=== PATIENT | female | born 1965 | race Caucasian/White ===

== ENCOUNTER 2018-05-03 14:40 | Outpatient (CLI) | payer OTHER ==
[2018-05-03] MEDS ORDERED: ALBU6.7H INH (15:54)
[2018-05-03] MEDS ORDERED: MONT10TA9 PO (15:54)
[2018-05-03] MEDS ORDERED: MULT1TAB60 PO (15:54)
[2018-05-03] MEDS ORDERED: ASCO10004 PO (15:54)
[2018-05-03] MEDS ORDERED: LACT1CAP35 PO (15:54)
[2018-05-03] MEDS ORDERED: ASPI-152 PO (15:54)
[2018-05-03] MEDS ORDERED: FISH1CAP PO (15:54)
== END 2018-05-03 23:59 | disposition home or self-care (01) ==
LOC: STAR 14:40
PROVIDERS: ATTEND Otolaryngology
DX: Z02.9 Encounter for administrative examinations, unspecified (principal)

== ENCOUNTER 2018-05-10 06:29 | Day surgery (SDC) | payer OTHER ==
[~2018-05-10] VITALS: Ht 160 cm; Wt 57.5 kg
[~2018-05-10 06:29] MED LIST: ALBU6.7H INH; ASCO10004 PO; ASPI-152 PO; FISH1CAP PO; LACT1CAP35 PO; MONT10TA9 PO; MULT1TAB60 PO
[2018-05-10] MEDS ORDERED: OXYMETAZOLINE NASAL SPRAY 0.05%, 15ML ONE (06:51)
[2018-05-10] MEDS ORDERED: FLUORESCEIN SODIUM 500 MG/5 ML ONE (06:51)
[2018-05-10] MEDS ORDERED: BACITRACIN OINT 500U/GM, 15 GM ONE (06:51)
[2018-05-10] MEDS ORDERED: EPINEPHRINE TOPICAL SOLN 1 MG/ML, 30ML ONE (06:51)
[2018-05-10] MEDS ORDERED: LIDOCAINE 1%-EPI 1:100K, 20ML ONE (06:51)
[2018-05-10] MEDS ORDERED: LACTATED RINGERS 1,000 ML IV SCH (06:54)
[2018-05-10] MEDS ORDERED: LIDOCAINE-MPF 1%, 2ML INFIL ONE (07:00)
[2018-05-10] MEDS ORDERED: CEFAZOLIN 1,000 MG ONE (08:03)
[2018-05-10] MEDS ORDERED: ONDANSETRON 2MG/ML, 2ML ONE (08:03)
[2018-05-10] MEDS ORDERED: NEOSTIGMINE 1 MG/ML, 10ML ONE (08:03)
[2018-05-10] MEDS ORDERED: FENTANYL PF 250 MCG/5ML ONE (08:03)
[2018-05-10] MEDS ORDERED: ROCURONIUM 10MG/ML,5ML ONE (08:03)
[2018-05-10] MEDS ORDERED: GLYCOPYRROLATE 0.2MG/1ML, 5ML ONE (08:03)
[2018-05-10] MEDS ORDERED: SUCCINYLCHOLINE 20 MG/ML, 10ML ONE (08:03)
[2018-05-10] MEDS ORDERED: MIDAZOLAM 1 MG/ML, 2ML ONE (08:03)
[2018-05-10] MEDS ORDERED: PROPOFOL 10 MG/ML, 20ML ONE (08:03)
[2018-05-10] MEDS ORDERED: ONDANSETRON ODT 8 MG PO PRN (08:30)
[2018-05-10] MEDS ORDERED: ONDANSETRON 2MG/ML, 2ML IV PRN (08:30)
[2018-05-10] MEDS ORDERED: OXYcodone 5 MG/5 ML ORAL.SOL UDC PO PRN (08:30)
[2018-05-10] MEDS ORDERED: HYDROmorphone 2 MG/ML, 1ML IVPush PRN (08:30)
[2018-05-10] MEDS ORDERED: FENTANYL PF 100 MCG/2ML IV PRN (08:30)
[2018-05-10] MEDS ORDERED: LORazepam 2 MG/ML, 1ML IVPush PRN (08:30)
[2018-05-10] MEDS ORDERED: hydrALAzine 20 MG/ML, 1ML IV PRN (08:30)
[2018-05-10] MEDS ORDERED: PROMETHAZINE 25 MG/ML, 1ML IV PRN (08:30)
[2018-05-10] MEDS ORDERED: LABETALOL 5MG/ML, 20ML IV PRN (08:30)
[2018-05-10] MEDS ORDERED: PROPOFOL 100 ML ONE (08:52)
[2018-05-10] MEDS ORDERED: DEXAMETHASONE 4 MG/ML, 1ML ONE (09:00)
[2018-05-10] MEDS: ACETAMINOPHEN 325 MG TABLET PO PRN ×2 (11:05→11:09)
[2018-05-10] MEDS ORDERED: ACETAMINOPHEN 650 MG/20.3 ML UDC ONE (11:08)
== END 2018-05-10 13:30 | disposition home or self-care (01) ==
LOC: OUT 06:29
PROVIDERS: ATTEND Otolaryngology
DX: J32.0 Chronic maxillary sinusitis (principal); J32.3 Chronic sphenoidal sinusitis; J32.4 Chronic pansinusitis; J33.8 Other polyp of sinus; J45.909 Unspecified asthma, uncomplicated; Z72.89 Other problems related to lifestyle; Z79.82 Long term (current) use of aspirin
CPT/HCPCS: 31253; 31259; 31267; 61782; 88304; J0330; J0690; J1100; J2405; J2704; J2710; J3010; J3490; J7120; J2250